=== PATIENT | female | born 1955 | race Caucasian/White ===

== ENCOUNTER → 2019-03-15 | Day surgery (SDC) | payer OTHER ==
[~2019-03-15] MED LIST: DAPTOmycin 500 MG VIAL ONE; Sodium Chloride 0.9% 100 ML BAG ONE; Sodium Chloride 0.9% 50 ML BAG ONE; cefTRIAXone\\ROCEPHIN 2 GM VIAL ONE
== END ==
LOC: MADER/OP 08:48 → EDSTATUS 09:09
PROVIDERS: ATTEND Internal Medicine Infectious Disease
DX: Z29.8 Encounter for other specified prophylactic measures (principal); Z88.8 Allergy status to other drugs, medicaments and biological substances; Z91.041 Radiographic dye allergy status
CPT/HCPCS: J0696; J0878; J3490

== ENCOUNTER → 2019-03-16 | Day surgery (SDC) | payer OTHER | LOC: MADER/OP 08:12 | PROVIDERS: ATTEND Internal Medicine Infectious Disease | DX: R78.81 Bacteremia (principal); E11.9 Type 2 diabetes mellitus without complications; G47.30 Sleep apnea, unspecified; C19 Malignant neoplasm of rectosigmoid junction; I42.0 Dilated cardiomyopathy; I10 Essential (primary) hypertension; Z88.8 Allergy status to other drugs, medicaments and biological substances; Z91.041 Radiographic dye allergy status; Z95.810 Presence of automatic (implantable) cardiac defibrillator; Z98.890 Other specified postprocedural states | CPT/HCPCS: J0696; J0878; J3490 ==

== ENCOUNTER → 2019-03-17 | Day surgery (SDC) | payer OTHER ==
[2019-03-17 09:11] LABS: #Basophils 0.2 thou/uL (0.0-0.2); #Eosinphils 0.4 thou/uL (0.0-0.7); #Neutrophils 6.3 thou/uL (1.40-6.50); %Basophils 1.7 % (0.0-1.0); %Lymphocytes 11.4 % (21.0-51.0); %Monocytes 10.8 % (0.0-10.0); %Neutrophils 71.1 % (42.0-75.0); Hemoglobin 8.4 g/dL (12.0-16.0); Mean Corpuscular HGB CONC 29.4 g/dL (32.0-36.0); Mean Corpuscular Hemoglobin 24.2 pg (27.0-31.0); Mean Corpuscular Volume 82.4 fL (78.0-98.0); Mean Platelet Volume 10.3 fL (7.4-10.4); Platelet Count 296 thou/uL (130-400); RBC Distribution Width 26.2 % (11.5-14.5); Red Blood Cell (RBC) Count 3.47 mill/uL (4.20-5.40); White Blood Cell (WBC) Count 8.8 thou/uL (4.8-10.8)
[2019-03-17 09:19] LABS: ALT (SGPT) 15 U/L (8-55); AST (SGOT) 20 U/L (5-34); Albumin 3.3 g/dL (3.4-4.8); Alkaline Phosphatase 71 U/L (40-110); Anion Gap 17 mmol/L (10-20); BUN (Urea Nitrogen) 30 mg/dL (9.8-20.1); Bilirubin, Total 0.4 mg/dL (0.2-1.2); CK (CPK) 27 U/L (29-168); CRP (Inflammatory) 3.23 mg/dL (= or < 0.5); Calc. Creatinine Clearance 0 mL/min (70-130); Calcium 8.9 mg/dL (7.8-10.44); Carbon Dioxide 26 mmol/L (23-31); Chloride 103 mmol/L (98-107); Estimated GFR-MDRD 38; Globulin 3.3 g/dL (2.4-3.5); Glucose 107 mg/dL (80-115); Potassium 3.9 mmol/L (3.5-5.1); Protein, Total 6.6 g/dL (6.0-8.3); Sodium 142 mmol/L (136-145)
[2019-03-17 09:28] LABS: Hypochromia MODERATE=16-30 cells (100X) (0-5/hpf)
[2019-03-17 09:29] LABS: Platelet Morphology Comment Appears Adequate
== END ==
LOC: MADER/OP 08:24
PROVIDERS: ATTEND Internal Medicine Infectious Disease
DX: R78.81 Bacteremia (principal); E11.9 Type 2 diabetes mellitus without complications; G47.30 Sleep apnea, unspecified; C19 Malignant neoplasm of rectosigmoid junction; I42.0 Dilated cardiomyopathy; I10 Essential (primary) hypertension; Z79.899 Other long term (current) drug therapy; Z88.8 Allergy status to other drugs, medicaments and biological substances; Z91.041 Radiographic dye allergy status; Z95.810 Presence of automatic (implantable) cardiac defibrillator
CPT/HCPCS: 80053; 82550; 85025; 86140; J0696; J0878; J3490

== ENCOUNTER → 2019-03-18 | Day surgery (SDC) | payer OTHER | LOC: MADER/OP 08:26 | PROVIDERS: ATTEND Internal Medicine Infectious Disease | DX: R78.81 Bacteremia (principal); E11.9 Type 2 diabetes mellitus without complications; G47.30 Sleep apnea, unspecified; C19 Malignant neoplasm of rectosigmoid junction; I42.0 Dilated cardiomyopathy; I10 Essential (primary) hypertension; Z79.899 Other long term (current) drug therapy; Z88.8 Allergy status to other drugs, medicaments and biological substances; Z91.041 Radiographic dye allergy status; Z95.810 Presence of automatic (implantable) cardiac defibrillator | CPT/HCPCS: J0696; J0878; J3490 ==

== ENCOUNTER → 2019-03-19 | Day surgery (SDC) | payer OTHER | LOC: MADER/OP 08:16 | PROVIDERS: ATTEND Internal Medicine Infectious Disease | DX: R78.81 Bacteremia (principal); E11.9 Type 2 diabetes mellitus without complications; G47.30 Sleep apnea, unspecified; C19 Malignant neoplasm of rectosigmoid junction; I42.0 Dilated cardiomyopathy; I10 Essential (primary) hypertension; Z88.8 Allergy status to other drugs, medicaments and biological substances; Z91.041 Radiographic dye allergy status; Z95.810 Presence of automatic (implantable) cardiac defibrillator; Z98.890 Other specified postprocedural states | CPT/HCPCS: J0696; J0878; J3490 ==

== ENCOUNTER 2019-03-20 18:59 | Emergency (ER) | payer OTHER | END 2019-03-20 21:45 | disposition home or self-care (01) | LOC: MADERS 18:59 | DX: R33.9 Retention of urine, unspecified (principal); E11.9 Type 2 diabetes mellitus without complications; G47.30 Sleep apnea, unspecified; I10 Essential (primary) hypertension; F32.9 Major depressive disorder, single episode, unspecified; Z95.5 Presence of coronary angioplasty implant and graft | CPT/HCPCS: 99283 ==

== ENCOUNTER → 2019-03-20 | Day surgery (SDC) | payer OTHER | LOC: MADER/OP 08:18 | PROVIDERS: ATTEND Internal Medicine Infectious Disease | DX: R78.81 Bacteremia (principal); C19 Malignant neoplasm of rectosigmoid junction; E11.9 Type 2 diabetes mellitus without complications; I10 Essential (primary) hypertension; G47.30 Sleep apnea, unspecified; I42.9 Cardiomyopathy, unspecified; Z79.4 Long term (current) use of insulin; Z79.82 Long term (current) use of aspirin; Z79.899 Other long term (current) drug therapy; Z88.8 Allergy status to other drugs, medicaments and biological substances; Z91.041 Radiographic dye allergy status; Z95.5 Presence of coronary angioplasty implant and graft | CPT/HCPCS: J0696; J0878; J3490 ==

== ENCOUNTER → 2019-03-21 | Day surgery (SDC) | payer OTHER | LOC: MADER/OP 11:18 | PROVIDERS: ATTEND Internal Medicine Infectious Disease | DX: R78.81 Bacteremia (principal); E11.9 Type 2 diabetes mellitus without complications; G47.30 Sleep apnea, unspecified; C19 Malignant neoplasm of rectosigmoid junction; I42.0 Dilated cardiomyopathy; I10 Essential (primary) hypertension; Z88.8 Allergy status to other drugs, medicaments and biological substances; Z91.041 Radiographic dye allergy status; Z95.810 Presence of automatic (implantable) cardiac defibrillator; Z98.890 Other specified postprocedural states | CPT/HCPCS: 96365; 96367; J0696; J0878; J3490 ==

== ENCOUNTER → 2019-03-23 | Day surgery (SDC) | payer OTHER ==
[~2019-03-23] MED LIST changes: -Sodium Chloride 0.9% 100 ML BAG ONE; +Sodium Chloride 0.9% 100 ML ONE; +Sodium Chloride 0.9% 50 ML ONE; +cefTRIAXone\\ROCEPHIN 1 GM VIAL ONE
== END ==
LOC: MADERS 08:18
PROVIDERS: ATTEND Internal Medicine Infectious Disease
DX: R78.81 Bacteremia (principal); E11.9 Type 2 diabetes mellitus without complications; G47.30 Sleep apnea, unspecified; C19 Malignant neoplasm of rectosigmoid junction; I42.0 Dilated cardiomyopathy; I10 Essential (primary) hypertension; Z88.8 Allergy status to other drugs, medicaments and biological substances; Z91.041 Radiographic dye allergy status; Z95.810 Presence of automatic (implantable) cardiac defibrillator; Z98.890 Other specified postprocedural states
CPT/HCPCS: 96365; 96375; J0696; J0878; J3490

== ENCOUNTER → 2019-03-24 | Day surgery (SDC) | payer OTHER ==
[~2019-03-24] MED LIST changes: +Sodium Chloride 0.9% 100 ML BAG ONE; -Sodium Chloride 0.9% 100 ML ONE; -Sodium Chloride 0.9% 50 ML ONE; -cefTRIAXone\\ROCEPHIN 1 GM VIAL ONE
== END ==
LOC: MADER/OP 08:22
PROVIDERS: ATTEND Internal Medicine Infectious Disease
DX: R78.81 Bacteremia (principal); E11.9 Type 2 diabetes mellitus without complications; G47.30 Sleep apnea, unspecified; C19 Malignant neoplasm of rectosigmoid junction; I42.0 Dilated cardiomyopathy; I10 Essential (primary) hypertension; Z88.8 Allergy status to other drugs, medicaments and biological substances; Z91.041 Radiographic dye allergy status; Z95.810 Presence of automatic (implantable) cardiac defibrillator; Z98.890 Other specified postprocedural states
CPT/HCPCS: 96365; 96367; J0696; J0878; J3490

== ENCOUNTER → 2019-03-25 | Day surgery (SDC) | payer OTHER | LOC: MADER/OP 07:55 | PROVIDERS: ATTEND Internal Medicine Infectious Disease | DX: R78.81 Bacteremia (principal); E11.9 Type 2 diabetes mellitus without complications; G47.30 Sleep apnea, unspecified; C19 Malignant neoplasm of rectosigmoid junction; I42.0 Dilated cardiomyopathy; I10 Essential (primary) hypertension; Z88.8 Allergy status to other drugs, medicaments and biological substances; Z91.041 Radiographic dye allergy status; Z95.810 Presence of automatic (implantable) cardiac defibrillator; Z98.890 Other specified postprocedural states | CPT/HCPCS: J0696; J0878; J3490 ==

== ENCOUNTER → 2019-03-27 | Day surgery (SDC) | payer OTHER | LOC: MADER/OP 07:51 | PROVIDERS: ATTEND Internal Medicine Infectious Disease | DX: R78.81 Bacteremia (principal); E11.9 Type 2 diabetes mellitus without complications; I10 Essential (primary) hypertension; Z88.8 Allergy status to other drugs, medicaments and biological substances; Z91.041 Radiographic dye allergy status; Z79.4 Long term (current) use of insulin | CPT/HCPCS: 96365; 96367; J0696; J0878; J3490 ==

== ENCOUNTER → 2019-03-28 | Day surgery (SDC) | payer OTHER | LOC: MADER/OP 07:49 | PROVIDERS: ATTEND Internal Medicine Infectious Disease | DX: R78.81 Bacteremia (principal); E11.9 Type 2 diabetes mellitus without complications; I10 Essential (primary) hypertension; Z79.4 Long term (current) use of insulin; Z88.8 Allergy status to other drugs, medicaments and biological substances; Z91.041 Radiographic dye allergy status | CPT/HCPCS: 96365; 96367; J0696; J0878; J3490 ==

== ENCOUNTER → 2019-03-29 | Day surgery (SDC) | payer OTHER | LOC: MADER/OP 07:42 | PROVIDERS: ATTEND Internal Medicine Infectious Disease | DX: R78.81 Bacteremia (principal); E11.9 Type 2 diabetes mellitus without complications; I10 Essential (primary) hypertension; Z79.4 Long term (current) use of insulin; Z79.899 Other long term (current) drug therapy; Z88.8 Allergy status to other drugs, medicaments and biological substances; Z91.041 Radiographic dye allergy status | CPT/HCPCS: 96365; 96367; J0696; J0878; J3490 ==

== ENCOUNTER → 2019-03-30 | Day surgery (SDC) | payer OTHER | LOC: MADER/OP 07:40 | PROVIDERS: ATTEND Internal Medicine Infectious Disease | DX: R78.81 Bacteremia (principal); E11.9 Type 2 diabetes mellitus without complications; I10 Essential (primary) hypertension; Z79.4 Long term (current) use of insulin; Z79.82 Long term (current) use of aspirin; Z79.899 Other long term (current) drug therapy; Z88.8 Allergy status to other drugs, medicaments and biological substances; Z91.041 Radiographic dye allergy status | CPT/HCPCS: 96365; 96367; J0696; J0878; J3490 ==

== ENCOUNTER → 2019-03-31 | Day surgery (SDC) | payer OTHER | LOC: MADER/OP 08:07 | PROVIDERS: ATTEND Internal Medicine Infectious Disease | DX: R78.81 Bacteremia (principal); I10 Essential (primary) hypertension; E11.9 Type 2 diabetes mellitus without complications; G47.30 Sleep apnea, unspecified; C19 Malignant neoplasm of rectosigmoid junction; I42.0 Dilated cardiomyopathy; Z79.899 Other long term (current) drug therapy; Z95.810 Presence of automatic (implantable) cardiac defibrillator; Z88.8 Allergy status to other drugs, medicaments and biological substances; Z91.041 Radiographic dye allergy status | CPT/HCPCS: 96365; 96367; J0696; J0878; J3490 ==

== ENCOUNTER → 2019-04-01 | Day surgery (SDC) | payer OTHER ==
[2019-04-01 08:42] LABS: Hemoglobin 9.6 g/dL (12.0-16.0); Mean Corpuscular HGB CONC 29.4 g/dL (32.0-36.0); Mean Corpuscular Hemoglobin 24.3 pg (27.0-31.0); Mean Corpuscular Volume 82.8 fL (78.0-98.0); Mean Platelet Volume 10.5 fL (7.4-10.4); Platelet Count 225 thou/uL (130-400); RBC Distribution Width 23.4 % (11.5-14.5); Red Blood Cell (RBC) Count 3.94 mill/uL (4.20-5.40); White Blood Cell (WBC) Count 7.1 thou/uL (4.8-10.8)
[2019-04-01 08:53] LABS: ALT (SGPT) 11 U/L (8-55); AST (SGOT) 12 U/L (5-34); Albumin 3.7 g/dL (3.4-4.8); Alkaline Phosphatase 42 U/L (40-110); Anion Gap 16 mmol/L (10-20); BUN (Urea Nitrogen) 28 mg/dL (9.8-20.1); Bilirubin, Total 0.4 mg/dL (0.2-1.2); CK (CPK) 118 U/L (29-168); CRP (Inflammatory) Less than 0.50 mg/dL (= or < 0.5); Calc. Creatinine Clearance 0 mL/min (70-130); Calcium 9.4 mg/dL (7.8-10.44); Carbon Dioxide 28 mmol/L (23-31); Chloride 102 mmol/L (98-107); Estimated GFR-MDRD 46; Globulin 2.7 g/dL (2.4-3.5); Glucose 145 mg/dL (80-115); Protein, Total 6.4 g/dL (6.0-8.3); Sodium 142 mmol/L (136-145)
== END ==
LOC: MADER/OP 08:12
PROVIDERS: ATTEND Internal Medicine Infectious Disease
DX: R78.81 Bacteremia (principal); I10 Essential (primary) hypertension; E11.9 Type 2 diabetes mellitus without complications; G47.30 Sleep apnea, unspecified; C19 Malignant neoplasm of rectosigmoid junction; I42.0 Dilated cardiomyopathy; Z79.899 Other long term (current) drug therapy; Z88.8 Allergy status to other drugs, medicaments and biological substances; Z91.041 Radiographic dye allergy status; Z95.810 Presence of automatic (implantable) cardiac defibrillator
CPT/HCPCS: 36415; 80053; 82550; 85027; 86140; 96365; 96367; J0696; J0878; J3490

== ENCOUNTER → 2019-04-02 | Day surgery (SDC) | payer OTHER | LOC: MADER/OP 14:29 | PROVIDERS: ATTEND Internal Medicine Infectious Disease | DX: R78.81 Bacteremia (principal); I10 Essential (primary) hypertension; E11.9 Type 2 diabetes mellitus without complications; G47.30 Sleep apnea, unspecified; C19 Malignant neoplasm of rectosigmoid junction; I42.0 Dilated cardiomyopathy; Z79.899 Other long term (current) drug therapy; Z88.8 Allergy status to other drugs, medicaments and biological substances; Z91.041 Radiographic dye allergy status; Z95.810 Presence of automatic (implantable) cardiac defibrillator | CPT/HCPCS: 96365; 96367; J0696; J0878; J3490 ==

== ENCOUNTER → 2019-04-03 | Day surgery (SDC) | payer OTHER | LOC: MADER/OP 08:10 | PROVIDERS: ATTEND Internal Medicine Infectious Disease | DX: R78.81 Bacteremia (principal); I10 Essential (primary) hypertension; E11.9 Type 2 diabetes mellitus without complications; G47.30 Sleep apnea, unspecified; C19 Malignant neoplasm of rectosigmoid junction; I42.0 Dilated cardiomyopathy; Z79.899 Other long term (current) drug therapy; Z88.8 Allergy status to other drugs, medicaments and biological substances; Z91.041 Radiographic dye allergy status; Z95.810 Presence of automatic (implantable) cardiac defibrillator | CPT/HCPCS: 96365; 96367; J0696; J0878; J3490 ==

== ENCOUNTER → 2019-04-04 | Day surgery (SDC) | payer OTHER | LOC: MADER/OP 08:01 | PROVIDERS: ATTEND Internal Medicine Infectious Disease | DX: R78.81 Bacteremia (principal); I10 Essential (primary) hypertension; E11.9 Type 2 diabetes mellitus without complications; G47.30 Sleep apnea, unspecified; C19 Malignant neoplasm of rectosigmoid junction; I42.0 Dilated cardiomyopathy; Z88.8 Allergy status to other drugs, medicaments and biological substances; Z91.041 Radiographic dye allergy status; Z95.5 Presence of coronary angioplasty implant and graft; Z95.810 Presence of automatic (implantable) cardiac defibrillator | CPT/HCPCS: 96365; 96367; J0696; J0878; J3490 ==

== ENCOUNTER → 2019-04-05 | Day surgery (SDC) | payer OTHER | LOC: MADER/OP 08:00 | PROVIDERS: ATTEND Internal Medicine Infectious Disease | DX: R78.81 Bacteremia (principal); I10 Essential (primary) hypertension; E11.9 Type 2 diabetes mellitus without complications; G47.30 Sleep apnea, unspecified; C19 Malignant neoplasm of rectosigmoid junction; I42.0 Dilated cardiomyopathy; Z88.0 Allergy status to penicillin; Z91.041 Radiographic dye allergy status; Z95.5 Presence of coronary angioplasty implant and graft; Z95.810 Presence of automatic (implantable) cardiac defibrillator | CPT/HCPCS: 96365; 96367; J0696; J0878; J3490 ==

== ENCOUNTER → 2019-04-06 | Day surgery (SDC) | payer OTHER | LOC: MADER/OP 07:53 | PROVIDERS: ATTEND Internal Medicine Infectious Disease | DX: R78.81 Bacteremia (principal); I10 Essential (primary) hypertension; E11.9 Type 2 diabetes mellitus without complications; G47.30 Sleep apnea, unspecified; C19 Malignant neoplasm of rectosigmoid junction; I42.0 Dilated cardiomyopathy; Z88.8 Allergy status to other drugs, medicaments and biological substances; Z91.041 Radiographic dye allergy status; Z95.5 Presence of coronary angioplasty implant and graft; Z95.810 Presence of automatic (implantable) cardiac defibrillator | CPT/HCPCS: J0696; J0878; J3490 ==

== ENCOUNTER → 2019-04-07 | Day surgery (SDC) | payer OTHER ==
[2019-04-07 09:14] LABS: #Basophils 0.1 thou/uL (0.0-0.2); #Eosinphils 0.4 thou/uL (0.0-0.7); #Monocytes 0.9 thou/uL (0.11-0.59); #Neutrophils 4.7 thou/uL (1.40-6.50); %Basophils 1.5 % (0.0-1.0); %Eosinophils 5.1 % (0.0-10.0); %Lymphocytes 14.6 % (21.0-51.0); %Neutrophils 66.9 % (42.0-75.0); Hemoglobin 9.5 g/dL (12.0-16.0); Mean Corpuscular HGB CONC 29.3 g/dL (32.0-36.0); Mean Corpuscular Hemoglobin 24.8 pg (27.0-31.0); Mean Corpuscular Volume 84.5 fL (78.0-98.0); Mean Platelet Volume 11.4 fL (7.4-10.4); Platelet Count 207 thou/uL (130-400); RBC Distribution Width 22.3 % (11.5-14.5); Red Blood Cell (RBC) Count 3.84 mill/uL (4.20-5.40); White Blood Cell (WBC) Count 7.1 thou/uL (4.8-10.8)
[2019-04-07 09:18] LABS: ALT (SGPT) 11 U/L (8-55); AST (SGOT) 9 U/L (5-34); Albumin 3.6 g/dL (3.4-4.8); Alkaline Phosphatase 43 U/L (40-110); Anion Gap 14 mmol/L (10-20); BUN (Urea Nitrogen) 28 mg/dL (9.8-20.1); Bilirubin, Total 0.4 mg/dL (0.2-1.2); CK (CPK) 40 U/L (29-168); CRP (Inflammatory) Less than 0.50 mg/dL (= or < 0.5); Calc. Creatinine Clearance 0 mL/min (70-130); Carbon Dioxide 27 mmol/L (23-31); Chloride 102 mmol/L (98-107); Estimated GFR-MDRD 45; Globulin 2.6 g/dL (2.4-3.5); Potassium 4.1 mmol/L (3.5-5.1); Protein, Total 6.2 g/dL (6.0-8.3); Sodium 139 mmol/L (136-145)
[2019-04-07 09:26] LABS: Glucose 204 mg/dL (80-115)
[2019-04-07 09:34] LABS: MDiff Complete? YES; Ovalocytes SLIGHT = 2-5 cells (100X) (0-1/hpf); Platelet Morphology Comment Appears Adequate; Poikilocytosis SLIGHT = 6-15 cells (100X) (0-5/hpf); Schistocytes SLIGHT = 2-5 cells (100X) (0-1/hpf)
== END ==
LOC: MADER/OP 08:17
PROVIDERS: ATTEND Internal Medicine Infectious Disease
DX: R78.81 Bacteremia (principal); E11.9 Type 2 diabetes mellitus without complications; I10 Essential (primary) hypertension; C19 Malignant neoplasm of rectosigmoid junction; G47.30 Sleep apnea, unspecified; I42.0 Dilated cardiomyopathy; Z95.5 Presence of coronary angioplasty implant and graft; Z95.810 Presence of automatic (implantable) cardiac defibrillator; Z88.8 Allergy status to other drugs, medicaments and biological substances; Z91.041 Radiographic dye allergy status
CPT/HCPCS: 80053; 82550; 85025; 86140; J0696; J0878; J3490

== ENCOUNTER → 2019-04-08 | Day surgery (SDC) | payer OTHER | LOC: MADER/OP 08:12 | PROVIDERS: ATTEND Internal Medicine Infectious Disease | DX: R78.81 Bacteremia (principal); C19 Malignant neoplasm of rectosigmoid junction; I42.0 Dilated cardiomyopathy; E11.9 Type 2 diabetes mellitus without complications; I10 Essential (primary) hypertension; G47.30 Sleep apnea, unspecified; Z88.8 Allergy status to other drugs, medicaments and biological substances; Z91.041 Radiographic dye allergy status; Z95.5 Presence of coronary angioplasty implant and graft; Z95.810 Presence of automatic (implantable) cardiac defibrillator | CPT/HCPCS: J0696; J0878; J3490 ==

== ENCOUNTER → 2019-04-09 | Day surgery (SDC) | payer OTHER | LOC: MADER/OP 08:10 | PROVIDERS: ATTEND Internal Medicine Infectious Disease | DX: R78.81 Bacteremia (principal); I10 Essential (primary) hypertension; E11.9 Type 2 diabetes mellitus without complications; G47.30 Sleep apnea, unspecified; C19 Malignant neoplasm of rectosigmoid junction; I42.0 Dilated cardiomyopathy; Z79.899 Other long term (current) drug therapy; Z88.8 Allergy status to other drugs, medicaments and biological substances; Z95.810 Presence of automatic (implantable) cardiac defibrillator | CPT/HCPCS: J0696; J0878; J3490 ==

== ENCOUNTER 2019-04-10 08:26 | Outpatient (CLI) | payer OTHER ==
[2019-04-10 08:47] LABS: ALT (SGPT) 18 U/L (8-55); AST (SGOT) 13 U/L (5-34); Albumin 3.7 g/dL (3.4-4.8); Alkaline Phosphatase 56 U/L (40-110); Anion Gap 14 mmol/L (10-20); BUN (Urea Nitrogen) 29 mg/dL (9.8-20.1); Bilirubin, Total 0.4 mg/dL (0.2-1.2); Calc. Creatinine Clearance 0 mL/min (70-130); Calcium 9.3 mg/dL (7.8-10.44); Carbon Dioxide 25 mmol/L (23-31); Chloride 105 mmol/L (98-107); Estimated GFR-MDRD 51; Globulin 2.6 g/dL (2.4-3.5); Glucose 150 mg/dL (80-115); Magnesium 2.1 mg/dL (1.6-2.6); Potassium 4.1 mmol/L (3.5-5.1); Protein, Total 6.3 g/dL (6.0-8.3); Sodium 140 mmol/L (136-145)
[2019-04-10 09:09] LABS: Mean Corpuscular HGB CONC 29.8 g/dL (32.0-36.0); Mean Corpuscular Hemoglobin 25.2 pg (27.0-31.0); Mean Corpuscular Volume 84.3 fL (78.0-98.0); RBC Distribution Width 21.6 % (11.5-14.5); Red Blood Cell (RBC) Count 3.98 mill/uL (4.20-5.40); White Blood Cell (WBC) Count 7.5 thou/uL (4.8-10.8)
[2019-04-10 09:10] LABS: %Lymphocytes 14.2 % (21.0-51.0); %Neutrophils 71.1 % (42.0-75.0); Mean Platelet Volume 10.4 fL (7.4-10.4); Platelet Count 196 thou/uL (130-400)
[2019-04-10 09:11] LABS: #Basophils 0.1 thou/uL (0.0-0.2); #Eosinphils 0.3 thou/uL (0.0-0.7); #Lymphocytes 1.1 thou/uL (1.20-3.40); #Monocytes 0.7 thou/uL (0.11-0.59); #Neutrophils 5.3 thou/uL (1.40-6.50); %Basophils 0.9 % (0.0-1.0); %Eosinophils 4.1 % (0.0-10.0); %Monocytes 9.7 % (0.0-10.0)
== END 2019-04-10 08:27 | disposition home or self-care (01) ==
LOC: MADLAB 08:26
PROVIDERS: ATTEND Internal Medicine
DX: I50.22 Chronic systolic (congestive) heart failure (principal)
CPT/HCPCS: 36415; 80053; 83735; 83880; 85025

== ENCOUNTER → 2019-04-10 | Day surgery (SDC) | payer OTHER | LOC: MADER/OP 08:05 | PROVIDERS: ATTEND Internal Medicine Infectious Disease | DX: R78.81 Bacteremia (principal); Z88.8 Allergy status to other drugs, medicaments and biological substances; Z91.041 Radiographic dye allergy status | CPT/HCPCS: J0696; J0878; J3490 ==

== ENCOUNTER → 2019-04-11 | Day surgery (SDC) | payer OTHER | LOC: MADER/OP 08:26 | PROVIDERS: ATTEND Internal Medicine Infectious Disease | DX: R78.81 Bacteremia (principal); C19 Malignant neoplasm of rectosigmoid junction; I42.0 Dilated cardiomyopathy; E11.9 Type 2 diabetes mellitus without complications; G47.30 Sleep apnea, unspecified; I10 Essential (primary) hypertension; Z79.2 Long term (current) use of antibiotics; Z88.8 Allergy status to other drugs, medicaments and biological substances; Z91.041 Radiographic dye allergy status; Z95.5 Presence of coronary angioplasty implant and graft; Z95.810 Presence of automatic (implantable) cardiac defibrillator | CPT/HCPCS: J0696; J0878; J3490 ==

== ENCOUNTER → 2019-04-12 | Day surgery (SDC) | payer OTHER | LOC: MADER/OP 08:21 | PROVIDERS: ATTEND Internal Medicine Infectious Disease | DX: R78.81 Bacteremia (principal); I10 Essential (primary) hypertension; E11.9 Type 2 diabetes mellitus without complications; G47.30 Sleep apnea, unspecified; C19 Malignant neoplasm of rectosigmoid junction; I42.0 Dilated cardiomyopathy; Z79.899 Other long term (current) drug therapy; Z88.8 Allergy status to other drugs, medicaments and biological substances; Z95.810 Presence of automatic (implantable) cardiac defibrillator | CPT/HCPCS: J0696; J0878; J3490 ==

== ENCOUNTER → 2019-04-13 | Day surgery (SDC) | payer OTHER | LOC: MADER/OP 08:07 | PROVIDERS: ATTEND Internal Medicine Infectious Disease | DX: R78.81 Bacteremia (principal); I10 Essential (primary) hypertension; E11.9 Type 2 diabetes mellitus without complications; G47.30 Sleep apnea, unspecified; C19 Malignant neoplasm of rectosigmoid junction; I42.0 Dilated cardiomyopathy; Z79.899 Other long term (current) drug therapy; Z88.8 Allergy status to other drugs, medicaments and biological substances; Z95.810 Presence of automatic (implantable) cardiac defibrillator | CPT/HCPCS: J0696; J0878; J3490 ==

== ENCOUNTER → 2019-04-14 | Day surgery (SDC) | payer OTHER ==
[2019-04-14 09:10] LABS: Hemoglobin 10.1 g/dL (12.0-16.0); Mean Corpuscular HGB CONC 29.1 g/dL (32.0-36.0); Mean Corpuscular Hemoglobin 25.6 pg (27.0-31.0); Mean Platelet Volume 12.6 fL (7.4-10.4); Platelet Count 234 thou/uL (130-400); RBC Distribution Width 20.8 % (11.5-14.5); Red Blood Cell (RBC) Count 3.95 mill/uL (4.20-5.40); White Blood Cell (WBC) Count 6.7 thou/uL (4.8-10.8)
[2019-04-14 09:13] LABS: ALT (SGPT) 11 U/L (8-55); AST (SGOT) 11 U/L (5-34); Albumin 3.6 g/dL (3.4-4.8); Alkaline Phosphatase 46 U/L (40-110); Anion Gap 12 mmol/L (10-20); BUN (Urea Nitrogen) 21 mg/dL (9.8-20.1); Bilirubin, Total 0.4 mg/dL (0.2-1.2); CK (CPK) 36 U/L (29-168); CRP (Inflammatory) Less than 0.50 mg/dL (= or < 0.5); Calc. Creatinine Clearance 0 mL/min (70-130); Carbon Dioxide 27 mmol/L (23-31); Chloride 104 mmol/L (98-107); Estimated GFR-MDRD 45; Globulin 2.3 g/dL (2.4-3.5); Glucose 186 mg/dL (80-115); Potassium 4.1 mmol/L (3.5-5.1); Protein, Total 5.9 g/dL (6.0-8.3); Sodium 139 mmol/L (136-145)
== END ==
LOC: MADER/OP 08:18
PROVIDERS: ATTEND Internal Medicine Infectious Disease
DX: R78.81 Bacteremia (principal); I10 Essential (primary) hypertension; E11.9 Type 2 diabetes mellitus without complications; G47.30 Sleep apnea, unspecified; C19 Malignant neoplasm of rectosigmoid junction; I42.0 Dilated cardiomyopathy; Z79.899 Other long term (current) drug therapy; Z88.8 Allergy status to other drugs, medicaments and biological substances; Z95.810 Presence of automatic (implantable) cardiac defibrillator
CPT/HCPCS: 36415; 80053; 82550; 85027; 86140; J0696; J0878; J3490

== ENCOUNTER → 2019-04-15 | Day surgery (SDC) | payer OTHER | LOC: MADER/OP 08:14 | PROVIDERS: ATTEND Internal Medicine Infectious Disease | DX: R78.81 Bacteremia (principal); I10 Essential (primary) hypertension; E11.9 Type 2 diabetes mellitus without complications; G47.30 Sleep apnea, unspecified; C19 Malignant neoplasm of rectosigmoid junction; I42.0 Dilated cardiomyopathy; Z79.899 Other long term (current) drug therapy; Z88.8 Allergy status to other drugs, medicaments and biological substances; Z95.810 Presence of automatic (implantable) cardiac defibrillator | CPT/HCPCS: J0696; J0878; J3490 ==

== ENCOUNTER → 2019-04-16 | Day surgery (SDC) | payer OTHER | LOC: MADER/OP 08:13 | PROVIDERS: ATTEND Internal Medicine Infectious Disease | DX: R78.81 Bacteremia (principal); E11.9 Type 2 diabetes mellitus without complications; I42.0 Dilated cardiomyopathy; G47.30 Sleep apnea, unspecified; I10 Essential (primary) hypertension; C19 Malignant neoplasm of rectosigmoid junction; Z88.8 Allergy status to other drugs, medicaments and biological substances; Z91.041 Radiographic dye allergy status; Z95.5 Presence of coronary angioplasty implant and graft; Z95.810 Presence of automatic (implantable) cardiac defibrillator | CPT/HCPCS: J0696; J0878; J3490 ==

== ENCOUNTER → 2019-04-17 | Day surgery (SDC) | payer OTHER | LOC: MADER/OP 08:07 | PROVIDERS: ATTEND Internal Medicine Infectious Disease | DX: R78.81 Bacteremia (principal); E11.9 Type 2 diabetes mellitus without complications; G47.30 Sleep apnea, unspecified; C19 Malignant neoplasm of rectosigmoid junction; I42.0 Dilated cardiomyopathy; I10 Essential (primary) hypertension; Z88.8 Allergy status to other drugs, medicaments and biological substances; Z91.041 Radiographic dye allergy status; Z95.810 Presence of automatic (implantable) cardiac defibrillator | CPT/HCPCS: J0696; J0878; J3490 ==